=== PATIENT | female | born 1960 | race Caucasian/White ===

== ENCOUNTER → 2024-01-11 10:54 | Outpatient (REF) | payer OTHER, BC, SELFPAY ==
[2024-01-11 15:58] LABS: Rubeola (Measles) IgG Positive; Varicella Zoster IgG (VZV) Positive
[2024-01-11 19:39] LABS: Rubella Positive
[2024-01-12 11:18] LABS: Mumps Virus IgG Positive
[2024-01-13 16:15] LABS: Quantiferon Mitogen minus NIL 9.92 IU/mL; Quantiferon NIL 0.08 IU/mL; Quantiferon Plus TB1 minus NIL 0.06 IU/mL (<=0.34); Quantiferon Plus TB2 minus NIL 0.01 IU/mL (<=0.34); Quantiferon TB Gold Plus Negative (Negative)
== END ==
LOC: REG 10:54
PROVIDERS: ATTENDING PHYSICIAN Nurse Practitioner Family
DX: Z23 Encounter for immunization (principal)
CPT/HCPCS: 36415; 86480; 86735; 86762; 86765; 86787

== ENCOUNTER 2024-10-04 14:37 | Emergency (ER) | payer OTHER, SELFPAY ==
[2024-10-04 14:37] VITALS: BMI 40.3
[2024-10-04 15:03] VITALS: BP 144/83
[2024-10-04 15:41] LABS: % Basophils 0.5 % (0-2); % Immature Granulocytes 0.2 % (0-0.5); % Lymphocytes 37.7 % (20.5-51.1); % Monocytes 5.4 % (1.7-9.3); % Neutrophils 54.2 % (42.2-75.2); Absolute Eosinophils 0.1 10^3/uL (0-0.7); Absolute Lymphocytes 2.2 10^3/uL (1.2-3.4); Absolute Monocytes 0.3 10^3/uL (0.1-0.6); Absolute Neutrophils 3.2 10^3/uL (1.4-6.5); Hematocrit 40.5 % (37.0-47.0); Hemoglobin 13.7 g/dL (12.0-16.0); Mean Corp Hgb Conc. 33.8 g/dL (33.0-37.0); Mean Corpuscular Hgb 33.1 pg (27.0-31.0); Mean Corpuscular Volume 97.8 fL (81.0-99.0); Mean Platelet Volume 10.8 fL (7.4-10.4); Nucleated Red Blood Cells % 0 %; Platelet Count 192 10^3/uL (130-400); Red Blood Cell Count 4.14 10^6/uL (4.20-5.40); Red Cell Dist. Width 12.9 % (11.5-14.5); White Blood Cell Count 5.9 10^3/uL (4.8-10.8)
[2024-10-04 16:05] LABS: Troponin I < 0.012 ng/ml
[2024-10-04 16:06] LABS: ALT (SGPT) 51 U/L (0-35); AST (SGOT) 40 U/L (14-36); Alkaline Phosphatase 89 U/L (38-126); Blood Urea Nitrogen 17 mg/dl (7-17); Calcium 9.5 mg/dl (8.4-10.2); Carbon Dioxide 27 mmol/L (22-30); Chloride 107 mmol/L (98-107); Glucose 110 mg/dl (70-99); Lipase 47 U/L (23-300); Potassium 4.3 mmol/L (3.5-5.1); Sodium 140 mmol/L (135-145); Total Bilirubin 0.4 mg/dl (0.2-1.3); Total Protein 6.2 g/dl (6.3-8.2); eGFR > 60.00
[2024-10-04 18:00] VITALS: BP 128/58
--- NOTE | 2024-10-04 18:04 | ED.GENMED ---
History of Present Illness
General
Chief Complaint: Chest Pain
Source: patient
Exam Limitations: none
Time Seen by Provider: 10/04/24 18:01
Nursing documentation reviewed up to this point in time: agreed with
History of Present Illness
History of Present Illness:
64-year-old female with history of ACS, CPAP, HTN, HLD, celiac, anxiety/depression presents for persistent left upper chest pain, left neck pain, headache. Since 9 p.m. last night, had nausea and headache, trouble sleeping last night due to 'worry.'
Finally fell asleep 2 a.m. and woke 6:30 today feeling no better.
This 9 a.m. had diarrhea and then 3 more times today (more than her typical daily diarrhea from Celiac), chest pain remained constant and had episode of profuse sweating (states she has episodes of profuse sweating occasionally and thinks it's her
hormones)
Called EMS, took NTG SL @ 2:[address] elevation PA 05/2021 with stent and states pain feels similar.
Hx HTN, HLD, Celiac disease. Strong FH cardiac disease
Denies SOB, abdominal pain, n/v, fever. Denies lightheadedness
Past History
Past History
ED Past Medical History: Cancer (Breast) and Other (Celiac)
ED Past Surgical History: Other (Right lumpectomy)
Social History
Tobacco: Non-smoker
Alcohol: None
Drug: None
Personal: Partner
Living: with family
Review of Systems
Review of Systems
Allergies reviewed?: Yes
All Other Systems: ROS reviewed and negative except as documented in HPI and ROS
Constitutional: Denies fever or fatigue
Respiratory: Denies trouble breathing
Cardiac: Reports chest pain and diaphoresis; Denies palpitations or syncope
ABD/GI: Reports diarrhea; Denies abdominal pain, nausea, vomiting or anorexia
: Denies dysuria, frequency or difficulty voiding
Musculoskeletal: Reports no symptoms; Denies edema
Skin: Reports no symptoms
Neurological: Reports headache
Phy Exam
Physical Exam
Physical Exam:
GENERAL: No acute distress. A&Ox3.
CONSTITUTIONAL: Afebrile.
EYES: clear, conjunctivae normal
ENMT: moist mucus membranes, Pharynx nl
RESPIRATORY: Regular respirations, nonlabored, lungs clear.
CARDIOVASCULAR: Regular rate and rhythm, no murmurs, no rubs.
GI: Soft, nontender, normal BS
MUSCULOSKELETAL: Pain left upper chest wall immediately reproducible with palpation. Moves with ease. Well perfused.
SKIN: Warm, dry, pink
PSYCH: Normal mood and affect. Well kept, interactive and appropriate
NEUROLOGIC: Awake, alert and oriented. No focal neurological deficits
Scores
Heart Score for Chest Pain Patients
STEMI patient?: Not applicable
Course
Orders/Labs/Results
Orders:
Orders
10/04/24 14:39
ECG [Electrocardiogram (*1)] Urgent
Reason for Study: Chest Pain
EKG- Treatment ONCE
10/04/24 15:25
Complete Blood Count/With Diff Urgent
Comprehensive Metabolic Panel Urgent
Lipase Urgent
Troponin I Urgent
10/04/24 18:34
COVID-19 Antigen Urgent
Source: Nasal Swab
Troponin I Urgent
Abnormal Lab Results
10/04/24
15:25
RBC 4.14 L 10^6/uL
(4.20-5.40)
MCH 33.1 H pg
(27.0-31.0)
MPV 10.8 H fL
(7.4-10.4)
Glucose 110 H mg/dl
(70-99)
AST 40 H U/L
(14-36)
ALT 51 H U/L
(0-35)
Total Protein 6.2 L g/dl
(6.3-8.2)
10/04/24 15:25
10/04/24 15:25
Vital Signs
Initial and Last Documented VS:
Initial Vital Signs
Temp Pulse Resp BP Pulse Ox
97.9 F 61 18 144/83 97
10/04/24 15:03 10/04/24 15:03 10/04/24 15:03 10/04/24 15:03 10/04/24 15:03
Last Documented Vital Signs
Temp Pulse Resp BP Pulse Ox
98.5 F 61 16 128/58 99
10/04/24 18:00 10/04/24 18:00 10/04/24 18:00 10/04/24 18:00 10/04/24 18:00
Inside Technical Sales Representative consulted with Physician
Inside Technical Sales Representative consulted with physician?: Yes
Name of Physician Consulted: Noh
MDM/Problems Addressed
Differential Diagnosis Includes:
ACS, PA
GI virus
MDM/Problems Addressed:
64-year-old female with history of ACS, CPAP, HTN, HLD, celiac, anxiety/depression presents for persistent left upper chest pain, left neck pain, headache. Since 9 p.m. last night, had nausea and headache, trouble sleeping last night due to 'worry.'
Finally fell asleep 2 a.m. and woke 6:30 today feeling no better.
This 9 a.m. had diarrhea and then 3 more times today (more than her typical daily diarrhea from Celiac), chest pain remained constant and had episode of profuse sweating (states she has episodes of profuse sweating occasionally and thinks it's her
hormones)
Hx Non ST elevation PA 05/2021 with stent and states pain feels similar.
Hx HTN, HLD, Celiac disease. Strong FH cardiac disease
Denies SOB, abdominal pain, n/v, fever. Denies lightheadedness
EKG: sinus bradycardia w sinus arrhythmia
7:30 PM
CBC with no clinically significant abnormality
CMP with no clinically significant abnormality
Troponin #1 and 2 within normal limits
COVID-negative
7:45 p.m.
64 yo female here with L CP radiating up left neck, says it feel same as 05/11/22 when admitted w ACS w stent IVUS guided PCI of the mid LAD, also RCA: there is a long, 40% lesion in the proximal vessel. Pain was relieved with NTG x 2, neg Troponin
x 2 with constant pain. Pain is reproducible.
Discussed with Cardiology Dr. Art who agrees pt OK for discharge to f/u with Cards
Pt referred to cardiac hotline.
Headache has resolved after dimming lights.
Chronic conditions affecting care: HTN and CAD
*Critical Care Note
Total Time (30-74mins, 75-104mins- exclusive of procedures): Not Applicable
ED Attending Note
-
Portions of this chart may have been created with voice recognition software.� Occasional wrong word or��sound alike� substitutions may have occurred due to the inherent limitations of voice recognition software.
Discharge Plan
Departure
Patient Disposition: Home (Routine Discharge)
Date of Disposition: 10/04/24
Time of Disposition: 19:53
Patient with high blood pressure during this ER visit?: No
Condition: Good
Discharge Problem:
Atypical chest pain, Headache
Instructions: Chest Pain That Is Not Caused by the Heart (DC), Headache in adults - ED discharge instructions, Chest Pain CBC Follow Up
Prescriptions:
No Action
gabapentin 300 mg Capsule
300 mg PO TID
letrozole 2.5 mg Tablet
2.5 mg PO DAILY
rosuvastatin [Crestor] 40 mg Tablet
40 mg PO DAILY
zolpidem [Ambien] 10 mg Tablet
5 mg PO HSPRN PRN (Reason: sleep)
metoprolol tartrate 50 mg Tablet
50 mg PO BID Qty: 180 5RF
aspirin 81 mg Tablet,Chewable
81 mg PO DAILY Qty: 1 0RF
nitroglycerin 0.4 mg Tablet, Sublingual
0.4 mg sublingual [id number] PRN (Reason: ANGINA) Qty: 25 5RF
lisinopril 2.5 mg Tablet
2.5 mg PO DAILY Qty: 90 5RF
ezetimibe 10 mg Tablet
10 mg PO HS Qty: 90 5RF
sertraline 25 mg Tablet
25 mg PO DAILY
pyridoxine (vitamin B6) 100 mg Tablet
100 mg PO DAILY
cholecalciferol (vitamin D3) [Vitamin D3] 125 mcg (5,000 unit) Tablet
125 mcg PO HS
magnesium oxide 400 mg magnesium Tablet
400 mg PO HS
cyanocobalamin (vitamin B-12) 5,000 mcg Capsule
5,000 mcg PO DAILY
Referrals:
Tena Art MD [Active] - Keep scheduled appt
Annalee Posada DO [Family Provider] -
Activity Restrictions/Additional Instructions:
As we discussed, nothing worrisome in your workup here today.
Your headache most likely is from the Nitroglycerine
Someone from the cardiology group will call you Monday or Monday for appointment for more thorough cardiac exam if indicated
Return here immediately for worsening chest pain, chest pain associate with shortness of breath, feeling lightheaded or dizzy, nausea, breaking out in a sweat or feeling sicker in any way
Interventions
Interventions:
*Risk Screen - Suicide Last Done: 10/04/24 15:03
*General Assessment Last Done: 10/04/24 15:03
*Neglect/Abuse Screening Last Done: 10/04/24 18:11
*ED- Fall Risk Assessment Last Done: 10/04/24 18:11
*Nursing Disposition Last Done: 10/04/24 19:57
ED- Cardiac Assessment Last Done: 10/04/24 18:11
Discharge Date and Time
Discharge Date/Time: 10/04/24 19:57
Print Language: [id number]
[2024-10-04 19:05] LABS: COVID-19 Antigen Negative (Negative)
[2024-10-04 19:13] LABS: Troponin I < 0.012 ng/ml
== END 2024-10-04 19:57 | disposition home or self-care (01) ==
LOC: EMR 14:37
PROVIDERS: Emergency Medicine; Registered Nurse; EMERGENCY PHYSICIAN Emergency Medicine; FAMILY PHYSICIAN Family Medicine
DX: R07.89 Other chest pain (principal); R51.9 Headache, unspecified; F32.A Depression, unspecified; F41.9 Anxiety disorder, unspecified; I10 Essential (primary) hypertension; E78.5 Hyperlipidemia, unspecified; Z11.52 Encounter for screening for COVID-19
CPT/HCPCS: 99284; 80053; 83690; 84484; 85025; 87811; 93005

== ENCOUNTER → 2024-10-24 07:41 | Outpatient (REF) | payer OTHER, MEDICARE, SELFPAY | LOC: HWRAD 07:41 | PROVIDERS: ATTENDING PHYSICIAN Family Medicine; REFERRING PHYSICIAN Physician Assistant | DX: K75.0 Abscess of liver (principal) | CPT/HCPCS: 76700 ==

== ENCOUNTER → 2024-11-13 11:16 | Outpatient (REF) | payer OTHER, MEDICARE, SELFPAY | LOC: HWRCS 11:16 | PROVIDERS: ATTENDING PHYSICIAN Internal Medicine Cardiovascular Disease; FAMILY PHYSICIAN Family Medicine | DX: R07.9 Chest pain, unspecified (principal) | CPT/HCPCS: 78452; 93017; A9500; J2785 ==

== ENCOUNTER → 2024-11-19 15:40 | Outpatient (REF) | payer OTHER, SELFPAY | LOC: RCS 15:40 | PROVIDERS: ATTENDING PHYSICIAN Internal Medicine Cardiovascular Disease; FAMILY PHYSICIAN Family Medicine | DX: R07.9 Chest pain, unspecified (principal) | CPT/HCPCS: 93306 ==